=== PATIENT | female | born 1995 | race African-American/Black ===

== ENCOUNTER → 2016-12-03 | Emergency (ER) | payer BC ==
[~2016-12-03] VITALS: Ht 165.1 cm; Wt 90.9 kg
[~2016-12-03] MED LIST: AMOXICILLIN 50500 MG PO; COMBIRESP IH; EPIPEN 2-PAK1 MG/ML IM; IRON TABLETS325 MG PO; PREDNISONE20 MG PO; ZOFRAN8 MG PO
[2016-12-03 22:41] VITALS: TEMP 98.7
[2016-12-03 23:16] LABS: ADJUSTED CALCIUM 9.5 mg/dL (8.4-10.2); ALBUMIN 4.1 gm/dL (3.5-5.0); BILIRUBIN,TOTAL 0.3 mg/dL (0.0-1.0); CALCIUM 9.6 mg/dL (8.4-10.2); CREATININE, serum 0.67 mg/dL (0.52-1.25); TOTAL PROTEIN 7.4 gm/dL (6.4-8.2)
[2016-12-03 23:56] VITALS: BP 121/73; PULSE 52
== END ==
LOC: COL.ER 22:39
PROVIDERS: Emergency Medicine
DX: O20.0 Threatened abortion (principal); O99.89 Other specified diseases and conditions complicating pregnancy, childbirth and the puerperium; R11.10 Vomiting, unspecified; R19.7 Diarrhea, unspecified; R10.13 Epigastric pain; Z3A.01 Less than 8 weeks gestation of pregnancy
CPT/HCPCS: J1170; J2405; J7030

== ENCOUNTER 2017-04-28 23:24 | Emergency (ER) | payer BC ==
[~2017-04-28] VITALS: Ht 165.1 cm; Wt 111.4 kg
[2017-04-28 23:33] VITALS: TEMP 98.8
[2017-04-28] MEDS ORDERED: PRENATAL1 TA7 PO (23:37)
[2017-04-29] MEDS ORDERED: PHENERGAN 25 TA25 MG PO (01:29)
[2017-04-29] MEDS ORDERED: PHENERGAN25 MG RC (01:29)
[2017-04-29 01:55] VITALS: BP 131/93; PULSE 69
== END 2017-04-29 01:55 | disposition home or self-care (01) ==
LOC: COL.ER 23:24
DX: O21.9 Vomiting of pregnancy, unspecified (principal); O99.341 Other mental disorders complicating pregnancy, first trimester; F31.9 Bipolar disorder, unspecified; F90.9 Attention-deficit hyperactivity disorder, unspecified type; Z3A.08 8 weeks gestation of pregnancy; Z87.891 Personal history of nicotine dependence
CPT/HCPCS: J2550